=== PATIENT | female | born 1950 | race Hispanic/Latino ===

== ENCOUNTER 2017-04-23 07:07 | Day surgery (SDC) | payer MEDICARE, MEDICAID ==
[~2017-04-23] VITALS: Ht 162.6 cm; Wt 90.3 kg
[~2017-04-23 07:07] MED LIST: ASPIRIN ADULT L81 MG PO; ASPIRIN EC81 MG PO; CIPROFLOXACN500 MG PO; CRESTOR20 MG PO; FENOFIBRATE145 MG PO; FIORICE1 PO; GLIPIZIDE5 MG PO; JANUVIA100 MG PO; LISINOPRIL5 MG PO; LOSARTAN POT50 MG PO; LOTRISONE CREAM15 GM EX; METFORMIN500 MG PO; OMEPRAZOLE20 MG PO; OXYBUTYNIN5 MG PO; PRAVASTATIN10 MG PO; TRAMADOL HYDROC50 MG PO; TRULICITY0.75 MG/0. SC; TYLENOL325 MG PO; ULTRAM50 M1 PO; [UNRECOGNIZED DRUG - REMARK]; [UNRECOGNIZED DRUG - REMARK]
[2017-04-23] MEDS ORDERED: NORCO1 TA1 PO (11:28)
[2017-04-23 12:18] VITALS: BP 116/68
== END 2017-04-23 12:09 | disposition home or self-care (01) ==
LOC: ORM 07:07
PROVIDERS: ATTEND Surgery
PROC: 0JH60XZ Insertion of Tunneled Vascular Access Device into Chest Subcutaneous Tissue and Fascia, Open Approach (ICD-10-PCS; principal; 2017-04-23)
PROC: 02HV33Z Insertion of Infusion Device into Superior Vena Cava, Percutaneous Approach (ICD-10-PCS; 2017-04-23)
PROC: B518ZZA Fluoroscopy of Superior Vena Cava, Guidance (ICD-10-PCS; 2017-04-23)
DX: C50.919 Malignant neoplasm of unspecified site of unspecified female breast (principal); Z90.13 Acquired absence of bilateral breasts and nipples

== ENCOUNTER 2018-05-29 20:45 | Emergency (ER) | payer MEDICARE, MEDICAID ==
[~2018-05-29] VITALS: Ht 162.6 cm; Wt 91.0 kg
[~2018-05-29 20:45] MED LIST changes: +NORCO1 TA1 PO
[2018-05-29] MEDS ORDERED: CELEBREX100 M1 PO (21:03)
[2018-05-29] MEDS ORDERED: PRAVASTATIN SOD20 MG PO (21:04)
[2018-05-29] MEDS ORDERED: FARXIGA10 MG PO (21:05)
[2018-05-29] MEDS ORDERED: TRULICITY0.75 MG/0. SC (21:07)
[2018-05-29] MEDS ORDERED: PERCOCET 5/321 COMBO PO (23:52)
[2018-05-30 00:10] VITALS: BP 131/74
== END 2018-05-30 00:10 | disposition home or self-care (01) ==
LOC: ED 20:45
DX: M79.605 Pain in left leg (principal); M54.5 Low back pain; G89.29 Other chronic pain

== ENCOUNTER 2019-05-11 08:38 | Day surgery (SDC) | payer MEDICARE, MEDICAID ==
[~2019-05-11 08:38] MED LIST changes: +ANASTROZOLE1 MG PO; +CELEBREX100 M1 PO; +FARXIGA10 MG PO; +LIPITOR20 M1 PO; +PERCOCET 5/321 COMBO PO; +PRAVASTATIN SOD20 MG PO; +PROTONIX40 M2 PO; +TRULICITY1.5 MG/0.5
[2019-05-11 11:32] VITALS: BP 128/75
== END 2019-05-11 11:50 | disposition home or self-care (01) ==
LOC: ENDO 08:38
PROVIDERS: ATTEND Surgery
PROC: 0DBH8ZX Excision of Cecum, Via Natural or Artificial Opening Endoscopic, Diagnostic (ICD-10-PCS; principal; 2019-05-11)
DX: Z12.11 Encounter for screening for malignant neoplasm of colon (principal); D12.0 Benign neoplasm of cecum; K57.30 Diverticulosis of large intestine without perforation or abscess without bleeding

== ENCOUNTER 2020-05-28 19:00 | Emergency (ER) | payer MEDICARE, MEDICAID ==
[~2020-05-28] VITALS: Ht 162.6 cm; Wt 90.0 kg
[2020-05-28] MEDS ORDERED: TRELEGY ELLIPTA1 AER IM (19:29)
[2020-05-28] MEDS ORDERED: AUGMENTIN500TAB PO (22:12)
[2020-05-28 22:16] VITALS: BP 182/63
== END 2020-05-28 22:16 | disposition home or self-care (01) ==
LOC: ED 19:00
PROC: 0HQ1XZZ Repair Face Skin, External Approach (ICD-10-PCS; principal; 2020-05-28)
DX: S02.2XXA Fracture of nasal bones, initial encounter for closed fracture (principal); S01.21XA Laceration without foreign body of nose, initial encounter; S00.83XA Contusion of other part of head, initial encounter; S50.312A Abrasion of left elbow, initial encounter; R07.89 Other chest pain; W01.0XXA Fall on same level from slipping, tripping and stumbling without subsequent striking against object, initial encounter; Y92.009 Unspecified place in unspecified non-institutional (private) residence as the place of occurrence of the external cause